=== PATIENT | female | born 1995 | race Caucasian/White ===

== ENCOUNTER 2016-08-25 16:18 | Emergency (ER) | payer OTHER ==
[~2016-08-25 16:18] MED LIST: BACTRIM DS TABL1 TA1; FLAGYL; LORTAB 5/500 TA1 TA1; NO MEDICATIONS; PHENERGAN
== END 2016-08-25 17:02 | disposition home or self-care (01) ==
LOC: SED 16:18
DX: Z00.00 Encounter for general adult medical examination without abnormal findings (principal); F17.200 Nicotine dependence, unspecified, uncomplicated
CPT/HCPCS: 99282; 99283